=== PATIENT | male | born 1945 | race Caucasian/White ===

== ENCOUNTER 2020-12-07 22:31 | Emergency (ER) | payer MEDICARE ==
[2020-12-07 23:30] LABS: BASO # 0.02 (0.02-0.10); EOS # 0.11 (0.04-0.40); HEMATOCRIT 36.6 % (42.0-52.0); HEMOGLOBIN 12.8 g/dL (13.5-18.0); LYMPH# 1.41 (1.50-4.00); MEAN CELL VOLUME 83 fl (78-100); MEAN CORPUSCULAR HEMOGLOBIN 29 pg (27-31); MEAN CORPUSCULAR HGB CONC 35 g/dL (33-37); MEAN PLATELET VOLUME 8.9 fl (7.4-10.4); MONO # 1.04 (0.20-0.80); PLATELET COUNT 232 K/mm3 (130-400); RED BLOOD COUNT 4.39 M/mm3 (4.20-5.60); RED CELL DISTRIBUTION WIDTH 12.5 % (11.5-14.5); WHITE BLOOD COUNT 11.2 K/mm3 (4.8-10.8)
[2020-12-07 23:31] LABS: ALBUMIN 3.7 g/dL (3.4-4.8)
[2020-12-07 23:32] LABS: POTASSIUM 3.3 mmol/L (3.5-5.1)
[2020-12-07 23:33] LABS: CALCIUM 9.4 mg/dL (8.3-10.5)
[2020-12-07 23:34] LABS: TOTAL PROTEIN 6.9 g/dL (6.2-8.1)
[2020-12-07 23:36] LABS: TOTAL BILIRUBIN 1.1 mg/dL (0.2-1.2)
[2020-12-07] MEDS ORDERED: FINASTERIDE5 M1 PO (23:49)
[2020-12-07] MEDS ORDERED: FLOMAX0.4 MG PO (23:50)
[2020-12-07] MEDS ORDERED: LISINOPRIL AND1 TA1 PO (23:50)
[2020-12-07] MEDS ORDERED: PLETAL 100MG T100 MG PO (23:50)
[2020-12-07] MEDS ORDERED: ATORVASTATIN CA40 MG PO (23:50)
[2020-12-07] MEDS ORDERED: ZINC50 M5 PO (23:51)
[2020-12-07] MEDS ORDERED: NIACIN500 M5 PO (23:51)
[2020-12-07] MEDS ORDERED: ST. JOSEPH ASPI81 MG PO (23:51)
[2020-12-07 23:58] LABS: URINE APPEARANCE CLOUDY; URINE COLOR YELLOW; URINE PROTEIN(semi-quant) 3+ mg/dL (NEGATIVE)
[2020-12-07 23:59] LABS: URINE BILIRUBIN NEGATIVE (NEGATIVE); URINE BLOOD 250 ery/uL (NEGATIVE); URINE GLUCOSE NEGATIVE (NEGATIVE); URINE KETONE NEGATIVE (NEGATIVE); URINE LEUKOCYTE ESTERASE 2+ (NEGATIVE); URINE NITRATE POSITIVE (NEGATIVE); URINE UROBILINOGEN NORMAL (NORMAL); URINE WBC >50 /hpf (0-3)
[2020-12-08] MEDS ORDERED: CIPRO500 M1 PO (00:22)
[2020-12-08 00:48] VITALS: BP 148/87
== END 2020-12-08 00:48 | disposition home or self-care (01) ==
LOC: ED 22:31
PROVIDERS: Physician Assistant
DX: N39.0 Urinary tract infection, site not specified (principal); E87.6 Hypokalemia; N40.0 Benign prostatic hyperplasia without lower urinary tract symptoms; I10 Essential (primary) hypertension; E78.5 Hyperlipidemia, unspecified; Z79.899 Other long term (current) drug therapy
CPT/HCPCS: J0696